=== PATIENT | male | born 1990 | race Hispanic/Latino ===

== ENCOUNTER 2017-07-03 21:56 | Observation (INO) | payer OTHER ==
[2017-07-03] MEDS ORDERED: DiphenhydrAMINE 50 mg/ml Inj IV STA (22:07)
[2017-07-03] MEDS ORDERED: Sodium Chloride 0.9% 1,000 ML IV STA (22:07)
[2017-07-03] MEDS ORDERED: EPINEPHrine 1 mg/ml (1:1000) Inj SC STA (22:11)
[2017-07-03] MEDS ORDERED: Albuterol-Ipratrop 3 mg / 0.5 (3 ml) UD INH STA ×2 (22:19)
[2017-07-03 22:48] VITALS: RESP 18
--- NOTE | 2017-07-03 23:02 | ED PDOC ---
HPI: Allergic Reaction Time Seen by Provider: 07/03/17 22:06 Chief Complaint (Nursing): Allergic Reaction Chief Complaint (Provider): Allergic Reaction History Per: Patient History/Exam Limitations: no limitations Current Symptoms Are (Timing): Still Present Context: Food Possible Cause: Food Associated Symptoms: Skin Rash Home/EMS Treatment: None Additional Complaint(s): Ayden Sprague, a 27 year old male, who has known nut and sesame allergies as well as a past medical history of asthma presents to the ED, for an allergic reaction. The patient states that he developed acute generalized hives, shortness of breath and facial swelling after eating at a restaurant. He states he did not have access to his Epi-pen but did take pepcid, maalox and benadryl with little to no relief. Denies chest pain, cough, fever. Patient does not some stomach pain. Past Medical History Reviewed: Historical Data, Nursing Documentation, Vital Signs Vital Signs: Last Vital Signs Temp 97.9 F 07/03/17 21:58 Pulse 83 07/03/17 22:15 Resp 18 07/03/17 22:15 BP 99/65 L 07/03/17 22:15 Pulse Ox 96 07/03/17 22:15 - Medical History PMH: Asthma - Surgical History Other surgeries: Labrum repair of left shoulder - Family History Family History: States: Unknown Family Hx - Social History Current smoker - smoking cessation education provided: No Alcohol: None Drugs: Denies - Home Medications Home Medications: Ambulatory Orders Medication Instructions Recorded Cetirizine HCl [Zyrtec] 10 mg PO QAM #10 capsule 07/04/17 Famotidine [Pepcid] 20 mg PO Q12 #14 tab 07/04/17 Methylprednisolone [Medrol Dosepak] 4 mg PO ASDIR #1 pkg 07/04/17 - Allergies Allergies/Adverse Reactions: Allergies Allergy/AdvReac Type Severity Reaction Status Date / Time nut - unspecified Allergy ANAPHYLAXIS Verified 07/03/17 21:58 Review of Systems ROS Statement: Except As Marked, All Systems Reviewed And Found Negative Constitutional: Positive for: Other (Allergic reaction). Negative for: Fever Cardiovascular: Negative for: Chest Pain Respiratory: Negative for: Cough Gastrointestinal: Positive for: Nausea, Abdominal Pain Physical Exam - Reviewed Nursing Documentation Reviewed: Yes Vital Signs Reviewed: Yes - Physical Exam Appears: Positive for: Non-toxic (In mild distress) Head Exam: Positive for: ATRAUMATIC, NORMAL INSPECTION, NORMOCEPHALIC Skin: Positive for: Normal Color, Warm, Dry, Rash (diffuse urticarial rash ) Eye Exam: Positive for: Normal appearance, EOMI, PERRL ENT: Positive for: Normal ENT Inspection (No swelling of lips or tongue) Neck: Positive for: Normal, Painless ROM, Supple Cardiovascular/Chest: Positive for: Regular Rate, Rhythm, Chest Non Tender, Tachycardia Respiratory: Positive for: Normal Breath Sounds (mild decrease in air entry ). Negative for: Wheezing, Respiratory Distress Gastrointestinal/Abdominal: Positive for: Normal Exam, Bowel Sounds, Soft. Negative for: Tenderness, Mass, Guarding, Rebound Back: Negative for: L CVA Tenderness, R CVA Tenderness Extremity: Positive for: Normal ROM. Negative for: Tenderness, Pedal Edema, Deformity, Swelling Neurologic/Psych: Positive for: Alert, Oriented, Gait - ECG O2 Sat by Pulse Oximetry: 96 (RA) Pulse Ox Interpretation: Normal - Progress ED Course And Treament: Initial Impression: 27 year old male presenting with acute allergic reaction anaphylaxis in setting of known sesame and nut allergies Initial Plan: * Benadryl 50mg IV * Duoneb 3ml INH * epinephrine 0.4mg SC * NS 1000mls IV 1000mls/hr * Pepcid 40mg IV * Solu-Medrol 125mg IVP * peak flow pre/post * Reevaluation - Scribe Attestation Documented by Veronica Salgado acting as a scribe for Fabian Leach MD. Provider Attestation All medical record entries made by the Scribe were at my direction and personally dictated by me. I have reviewed the chart and agree that the record accurately reflects my personal performance of the history, physical exam, medical decision making, and the department course for this patient. I have also personally directed, reviewed, and agree with the discharge instructions and disposition. - Critical Care Total Time (In Min): 30 ED OBSERVATION Discharge: Yes Date of observation admission: 07/03/17 Time of observation admission: 23:15 - Observation admission statement Patient is being placed in observation because:: pending re-eval for anaphylaxis - Goals of Observation Goals of observation are:: Improvement in condition - Progress Note Progress Note: 07/04/17 00:47 Patient reports complete resolution in symptoms and requests to go home. Patient was offered additional OBS in ED and possible hospitalization; however, patient insists symptoms have completely resolved. 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 Dx: Anaphylaxis Condition: improved Disposition - Clinical Impression Clinical Impression: Anaphylactic reaction - Disposition Disposition Time: 23:15 (07/03/17) Condition: IMPROVED - Pt Status Changed To: Hospital Disposition Of: Observation - POA Present On Arrival: None Medical Decision Making Medical Decision Makin Initial impression: anaphylaxis Initial plan: * Benadryl 50mg IV * Duonebs 3mL INH x2 * Epinephrine 0.4mg SC * NS IV * Pepcid 40mg IV * Solumedrol 125mg IVP * Peak flow pre/post Tx x2 * Re-eval 2315 * ED OBS ADMISSION All further documentation will take place in ED OBS note. Scribe Attestation: Documented by Coleen Guerrero acting as a scribe for Fabian Leach MD. Scribe Attestation: All medical record entries made by the Scribe were at my direction and personally dictated by me. I have reviewed the chart and agree that the record accurately reflects my personal performance of the history, physical exam, medical decision making, and the department course for this patient. I have also personally directed, reviewed, and agree with the discharge instructions and disposition.
[2017-07-04] MEDS ORDERED: Sodium Chloride 0.9% 1,000 ML IV STA (00:19)
[2017-07-04 00:27] VITALS: BP 117/60; PULSE 85; TEMP 98
[2017-07-04 00:49] VITALS: O2SAT 96
== END 2017-07-04 01:18 | disposition home or self-care (01) ==
LOC: H.ER 21:56 → H.EROBSV 23:15
PROVIDERS: ADMIT Emergency Medicine; ATTEND Emergency Medicine
DX: T78.2XXA Anaphylactic shock, unspecified, initial encounter (principal); J45.909 Unspecified asthma, uncomplicated